=== PATIENT | female | born 1960 | race American Indian/Alaskan Native ===

== ENCOUNTER 2017-10-12 12:27 | Outpatient (CLI) | payer MEDICARE ==
--- NOTE | 2017-10-12 14:03 | Cat Scan Report ---
FINAL REPORT EXAM: CT LUMBAR SPINE WO CON HISTORY: LOW BACK PAIN TECHNIQUE: Axial images of the lumbar spine were obtained. Coronal and sagittal reformatted images were obtained. PRIORS: None. FINDINGS: Vertebral body heights and alignment are maintained. There is no evidence of acute fracture. At L1-2, L2-3 and L3-4, there is no disc protrusion or spinal stenosis seen. At L4-5 there is a small central calcified disc herniation. There is moderate facet arthropathy and enlargement with some ligamentum flavum hypertrophy. These findings cause only minimal central spinal stenosis. There is no significant neuroforaminal stenosis. At L5-S1 there is a moderate central disc herniation. There [id number] facet arthropathy and enlargement. Findings cause moderate central spinal stenosis and mild neuroforaminal narrowing, left more than right. IMPRESSION: L5-S1 moderate central disc herniation and [id number] facet arthropathy causing moderate spinal stenosis and mild mild neuroforaminal narrowing. Additional findings at L4-5 as indicated above.
--- NOTE | 2017-10-13 08:29 | Magnetic Resonance Report ---
MRI LUMBAR SPINE WITHOUT CONTRAST HISTORY: Low back pain. TECHNIQUE: axial T1, T2. sagittal T1,T2, STIR. COMPARISON: CT lumbar spine without contrast dated 10/12/17. FINDINGS: The conus terminates at L1. No signal abnormality or mass. The cauda equina is within normal limits. Normal height and alignment of the lumbar vertebra. The facet joints are in appropriate relationship. Normal bone marrow signal. No acute fracture or suspicious bone lesion. There is mild diffuse disc desiccation without significant narrowing. Mild facet arthropathy is identified at all levels. L4-5 and L5-S1 are most affected. There is mild thickening of the ligamentum flavum from L2-L5. L1-2: No significant abnormality. L2-3: No significant abnormality. L3-4: No significant abnormality. L4-5: A moderate left paracentral disc protrusion is identified which effaces the left anterior thecal sac. The protrusion abuts but does not displace the left L5 nerve root within the spinal canal. There is moderate facet arthropathy and hypertrophy ligamentum flavum. No central canal stenosis. There is mild bilateral neural foraminal narrowing estimated at 25-50%. L5-S1: There is a small midline to right paracentral disc protrusion which mildly effaces the anterior thecal sac but no mass effect on nerve roots. Moderate facet arthropathy and mild hypertrophy ligamentum flavum. Right neural foraminal narrowing is estimated at 25%. Left neural foraminal narrowing is estimated at 50%. IMPRESSION: Mild to moderate multilevel lumbar spondylosis. At L4-5 is the most affected level. Moderate left paracentral disc protrusion at L4-5 with mild mass effect as described. Small midline to right paracentral disc protrusion without significant mass effect.
== END 2017-10-12 12:28 | disposition home or self-care (01) ==
LOC: CT 12:27
PROVIDERS: ATTEND Orthopaedic Surgery Orthopaedic Trauma
DX: M48.061 Spinal stenosis, lumbar region without neurogenic claudication (principal); M51.27 Other intervertebral disc displacement, lumbosacral region; M47.894 Other spondylosis, thoracic region; M12.88 Other specific arthropathies, not elsewhere classified, other specified site
CPT/HCPCS: 72131; 72148